=== PATIENT | male | born 1930 | race Caucasian/White ===

== ENCOUNTER 2021-08-20 13:37 | Emergency (ER) | payer OTHER ==
[~2021-08-20] VITALS: Ht 172.7 cm; Wt 74.8 kg
[2021-08-20] MEDS ORDERED: ESZO3TAB39 PO ×3 (13:54→14:39)
[2021-08-20] MEDS ORDERED: EZET-59 PO ×2 (13:54→14:38)
--- NOTE | 2021-08-20 13:56 | NUR ---
BIBS C/O OF LACK OF SLEEP FOR 2 DAYS, NEED MED REFILL FOR LUNESTA AND BIBS C/O OF LACK OF SLEEP FOR 2 DAYS, NEED MED REFILL FOR LUNESTA AND CHOLESTEROL MEDICATIONS
--- NOTE | 2021-08-20 15:41 | NUR ---
Patient discharged to home in stable condition. Written and verbal after care instructions given. Patient verbalizes understanding of instruction.
[2021-08-20 15:42] VITALS: BP 138/74
== END 2021-08-20 15:42 | disposition home or self-care (01) ==
LOC: ER 13:37
DX: G47.00 Insomnia, unspecified (principal); E78.5 Hyperlipidemia, unspecified; Z76.0 Encounter for issue of repeat prescription